=== PATIENT | female | born 1975 | race Two or more races ===

== ENCOUNTER 2024-12-16 09:51 | Emergency (ER) | payer OTHER, SELFPAY ==
[2024-12-16 09:59] VITALS: BP 137/89; PULSE 73; RESP 18; TEMP 36.8; O2SAT 98; BMI 30.9
--- NOTE | 2024-12-16 10:19 | XR_ITS ---
EXAMINATION: Cervical spine, 5 views Technique: Cervical spine AP, AP odontoid, lateral, bilateral obliques, 5 views Exam date and time: 12/16/2024, 10:23 a.m. INDICATION: Pain COMPARISON: None FINDINGS: No evidence of fracture or dislocation. Mild multilevel degenerative changes with disc space narrowing, endplate irregularities and marginal osteophytes. IMPRESSION: No acute bony abnormality. Mild multilevel degenerative changes as above. Nonemergent MRI exam may provide additional diagnostic information.
--- NOTE | 2024-12-16 10:19 | EKG_ITS ---
[facility] Test Date: 2024-12-16 Pat Name: LES VAZ Department: Room: - Gender: Female [employer] Contact Representative: : 1975 Requested By: Maciel Segovia (YINKA) Order Number: [id number] Reading MD: Maciel Segovia (LOGISTICS ANALYTICS MANAGER) Measurements Intervals [place] Rate: 70 P: 40 RI: 137 QRS: 4 QRSD: 94 T: 63 QT: 405 QTc: 438 Interpretive Statements SINUS RHYTHM No previous ECG available for comparison /[id number]
--- NOTE | 2024-12-16 10:19 | XR_ITS ---
Examination:. CT brain head without contrast. 2-D sagittal coronal reconstructions Date and time of exam: 12/16/2024, 10:59 a.m. INDICATION: Headache CTDI: vol (mGy): 52.2 DLP: (mGycm): 1114 Technique: Multiple CT axial sections of the brain have been obtained, 5 mm slice thickness. Contrast has not been administered. 2-D sagittal, coronal reconstructions have been obtained Low dose protocols were performed. One or more of the following dose reduction techniques were used; automated exposure control, adjustment of the mA and/or KV according to patient size, use of iterative reconstruction technique. Findings: No significant ventricular enlargement. Intra-axial or extra-axial hemorrhage density is not seen. No mass effect or midline shift Basal cisterns are not remarkable. Fourth ventricle is midline. Cranial vault intact. Impression: Negative for acute hemorrhage, mass effect or midline shift MRI exam may provide additional diagnostic information
--- NOTE | 2024-12-16 10:19 | PD.EDRME ---
Rapid Medical Screening Exam [facility] Arrival date/time: 12/16/24 09:51 49-year-old female presents to the Emergency Department for complaint of neck pain head pain and dizziness intermittently for last couple of weeks Chief Complaint: Neck Pain/Injury Vital signs: Vital Signs Temperature 98.2 F 12/16/24 09:59 Pulse Rate 73 12/16/24 09:59 Respiratory Rate 18 12/16/24 09:59 Blood Pressure 137/89 H 12/16/24 09:59 Pulse Oximetry (%) 98 12/16/24 09:59 Oxygen Delivery Method Room Air 12/16/24 09:59
[2024-12-16 11:40] LABS: Basophils # (Auto) 0.0 Thou/mm3 (0.0-0.2); Basophils % (Auto) 1 % (0-2.5); Eosinophils # (Auto) 0.1 Thou/mm3 (0.0-0.5); Eosinophils % (Auto) 2 % (0-10); Hematocrit 44.4 % (36.0-46.0); Hemoglobin 14.7 g/dL (12.0-16.0); Immature Granulocytes Auto 0.04 Thou/mm3 (0.00-0.00); Lymphocytes # (Auto) 2.8 Thou/mm3 (1.0-4.8); Lymphocytes % (Auto) 38 % (10-50); Mean Corpuscular HGB Conc 33.1 g/dl (31.0-37.0); Mean Corpuscular Hemoglobin 29.2 pg (25.0-35.0); Mean Corpuscular Volume 88 fL (80-100); Monocytes # (Auto) 0.5 Thou/mm3 (0.0-0.8); Monocytes % (Auto) 7 % (0-12); Neutrophils # (Auto) 3.9 Thou/mm3 (1.8-7.7); Neutrophils % (Auto) 53 % (37-80); Nucleated Red Blood Cell # 0.00 Thou/mm3 (0.00-0.00); Nucleated Red Blood Cell % 0 /100 WBC (0); Platelet Count 302 Thou/mm3 (140-440); RDW Standard Deviation 38.2 fL (36.4-46.3); Red Blood Count 5.04 Miln/mm3 (4.00-5.20); White Blood Count 7.5 Thou/mm3 (3.6-11.0)
[2024-12-16 14:08] LABS: Alanine Aminotransferase 23 U/L (10-49); Albumin, Serum 4.5 gm/dL (3.5-5.0); Albumin/Globulin Ratio 1.5 (1.2-2.2); Alkaline Phosphatase 82 U/L (46-116); Anion Gap 9 (7-16); Aspartate Amino Transferase 22 U/L (0-34); BUN/Creatinine Ratio 11 Ratio (12-20); Bilirubin,Total 0.9 mg/dL (0.3-1.2); Blood Urea Nitrogen 8 mg/dL (9-23); Calcium 9.3 mg/dL (8.3-10.6); Calcium (Corrected) 9.3 mg/dL (8.5-10.1); Carbon Dioxide 26.3 mMol/L (20.0-31.0); Chloride 108 mMol/L (98-107); Creatinine (Component) 0.7 mg/dL (0.6-1.3); Estimated Creatinine Clearance 103.1 mL/min (>60); Globulin 3.1 gm/dL (2.3-3.5); Glucose 93 mg/dL (74-106); Osmolality,Calculated 283 (275-295); Potassium 4.1 mMol/L (3.4-5.1); Sodium 143 mMol/L (136-145); Thyroid Stimulating Hormone 4.27 uIU/mL (0.55-4.78); Total Protein 7.6 gm/dL (5.7-8.2); Troponin I < 0.002 ng/mL (0.0-0.045); eGFR > 60 See Note
--- NOTE | 2024-12-16 14:24 | PD.EDADULT ---
ED General RME/HPI General Chief complaint: Neck Pain/Injury Stated complaint: PAIN IN NECK Time Seen by Provider: 12/16/24 13:02 Arrival date/time: 12/16/24 09:51 RME / HPI RME / HPI narrative: Catrina is a 49 y/o female who comes in for neck pain for the past 6 months, with no associated numbness or tingling, rated 8 out of 10 in pain at this time. Patient reports that she has been following her doctor who told her that she could not not do anything for her pain however has not gotten any imaging done for her. She says she is takes ibuprofen as needed for pain. Denies any chest pain, dizziness, shortness of breath, numbness, blurry vision at this time. She does not take any blood thinners. She has no other complaints at this time. Related Data Previous Rx's ?Medication ?Instructions ?Recorded aluminum-mag hydroxide-simethicone 5 ml PO Q3H PRN indigestion #473 mL 01/07/21 200 mg-200 mg-20 mg/5 mL oral susp (Maalox Advanced) famotidine 20 mg tablet 20 mg PO QDAY #30 tabs 01/07/21 amoxicillin 875 mg-potassium 1 tab PO BID #14 tabs 09/04/22 clavulanate 125 mg tablet cyclobenzaprine 10 mg tablet 10 mg PO TID PRN muscle spasm #30 09/14/23 tabs ibuprofen 800 mg tablet 800 mg PO TID PRN pain #30 tabs 09/14/23 Allergies Allergy/AdvReac Type Severity Reaction Status Date / Time No Known Allergies Allergy Verified 12/16/24 09:54 Review of Systems Review of Systems Narrative Review of Systems: 12 point ROS reviewed and is otherwise negative unless stated directly in the HPI ED Exam Narrative Physical exam: General: AAOx3, NAD, HEENT: Moist mucous membranes, conjunctiva clear, EOMI, PERRLA, Cardiovascular: S1, S2, radial pulses +2 bilat, RRR Pulmonary: CTAB bilat no cough, no wheezing GI: No tenderness to light or deep palpitation, no guarding, rigidity, rebound tenderness or distension Extremities: No presence of trace or pitting edema in lower extremities bilaterally, dorsalis pedis pulses +2 bilaterally MSK: No pain with cervical rotation bilat, no pain with flexion or extension of cervical spine Neuro: AAOx3, no focal motor or sensory deficits in the UE or LE bilat Psych: Good judgement, thought and behavior Course Quality Measures none Orders Category Date Time Status EKG (ED ONLY) *Do not use* NOW Care 12/16/24 10:[address] head/brain wo con Stat Exams 12/16/24 10:19 Completed EKG (ED Only) Stat Exams 12/16/24 10:19 Draft XR cervical spine 2-3V Stat Exams 12/16/24 10:19 Completed CBC Stat Lab 12/16/24 11:02 Completed Comprehensive Metabolic Panel Stat Lab 12/16/24 11:02 Results Free T4 (Free Thyroxine) Stat Lab 12/16/24 11:02 Results TSH [Thyroid Stimulating Hormone] Stat Lab 12/16/24 11:02 Results Troponin I Stat Lab 12/16/24 11:02 Results Acetaminophen Tab [Tylenol Tab] Med 12/16/24 14:04 Discontinued 650 mg PO X1 ONE CYCLObenzaPRINE [Flexeril] Med 12/16/24 14:04 Discontinued 10 mg PO X1 ONE Lidocaine 5% Patch Med 12/16/24 14:04 Discontinued 1 patch TOP X1 ONE Vital Signs Vital signs: Vital Signs Temperature 98.2 F 12/16/24 09:59 Pulse Rate 73 12/16/24 09:59 Respiratory Rate 18 12/16/24 09:59 Blood Pressure 137/89 H 12/16/24 09:59 Pulse Oximetry (%) 98 12/16/24 09:59 Oxygen Delivery Method Room Air 12/16/24 09:59 Discharge Plan Plan Patient Disposition: HOME (Self Care) Prescriptions/Referrals Prescriptions/Med Rec: No Action alum-mag hydroxide-simeth [Maalox Advanced] 200-200-20 mg/5 mL suspension 5 ml PO Q3H PRN (Reason: indigestion) Qty: 473 0RF famotidine 20 mg tablet 20 mg PO QDAY Qty: 30 0RF amoxicillin-pot clavulanate 875-125 mg tablet 1 tab PO BID Qty: 14 0RF ibuprofen 800 mg tablet 800 mg PO TID PRN (Reason: pain) Qty: 30 0RF cyclobenzaprine 10 mg tablet 10 mg PO TID PRN (Reason: muscle spasm) Qty: 30 0RF Problem List Clinical Impression: Osteoarthritis cervical spine Patient/Caregiver Discharge Instructions Additional Instructions: Discharge instructions Follow-up with your PCP within 1 week Discuss with your primary care physician in regards to further workup of your cervical neck pain including MRI, pain specialist referral, and possible neurosurgical or orthopedic neck specialist referral. We are prescribing you Flexeril, take as prescribed We are prescribing you lidocaine patches, take as prescribed Use Tylenol [id number] Return to ED if your symptoms worsen or return Instrucciones para el harvey: Consulte con nix m?dico de cabecera en el plazo de melanie semana. Consulte con nix m?dico de cabecera sobre la evaluaci?n adicional de nix dolor cervical, incluyendo melanie resonancia magn?caprice, la derivaci?n a un especialista en dolor y la posible derivaci?n a un neurocirujano o especialista en ortopedia cervical. Le recetamos Flexeril; t?benjamin seg?n lo prescrito. Le recetamos parches de lidoca?na; t?melos seg?n lo prescrito. Use Tylenol sin receta. Regrese a urgencias si levar s?ntomas empeoran o reaparecen. Print Language: Slovak Stand Alone Forms: Isaura Award Info., Patient Portal Info Letter MDM Narrative MDM hospital course (for use when minimal MDM required): 1431: X-ray cervical spine shows mild multilevel degenerative changes with disc space narrowing, endplate irregularities and marginal osteophytes, however no fractures. Labs within normal limits. Gave patient multimodal pain management with lidocaine patch, Tylenol and Flexeril. Patient to follow-up with outpatient for further imaging considering MRI and possible pain management referral and referral to neurosurgical or orthopedic [place] specialists. Patient medically cleared for discharge at this time EKG Interpretation EKG #1: EKG Interpretation: QT 405, normal sinus rhythm, heart rate 78, no ST changes. Medication Administration(s) Medication Administration History Discontinued Medications Acetaminophen (Acetaminophen 325 Mg Tablet) 650 mg PO X1 ONE Stop: 12/16/24 14:05 Cyclobenzaprine HCl (Cyclobenzaprine 5 Mg Tablet) 10 mg PO X1 ONE Stop: 12/16/24 14:05 Lidocaine (Lidocaine 5% 1 Patch) 1 patch TOP X1 ONE Stop: 12/16/24 14:05
[2024-12-16 14:58] VITALS: BP 126/84; PULSE 75; RESP 18; TEMP 36.7; O2SAT 96
[2024-12-16] MEDS: ACETAMINOPHEN 325 MG TABLET 650 MG PO (15:00)
[2024-12-16] MEDS: LIDOCAINE 5% 1 PATCH TOP (15:00)
[2024-12-16 16:39] LABS: Free T4 (Free Thyroxine) 1.45 ng/dL (0.89-1.76)
== END 2024-12-16 15:14 | disposition home or self-care (01) ==
PROVIDERS: Nurse Practitioner Primary Care; PCP Family Medicine
DX: M47.812 Spondylosis without myelopathy or radiculopathy, cervical region (principal)
CPT/HCPCS: 36415; 70450; 72040; 80053; 84439; 84443; 84484; 85025; 93005; 99283; J3490; A9270